=== PATIENT | male | born 1965 | race Caucasian/White ===

== ENCOUNTER → 2016-09-26 | Outpatient (CLI) | payer OTHER ==
[~2016-09-26] VITALS: Ht 175.3 cm; Wt 109.4 kg
[~2016-09-26] MED LIST: ACETAMINOPHEN-1 EAC1 PO; AMBIEN 10 MG TA10 MG PO; AMOXICILLIN875 MG PO; ASPIRIN EC81 M1 PO; EFFEXOR XR150 MG PO; EFFEXOR XR75 MG PO; FLEXERIL PO; HYDROCODONE-AC120 ML PO; HYDROXYZINE PAM50 MG PO; LIORESAL 10 MG10 MG PO; LISINOPRIL5 MG PO; LYRICA 50 MG50 MG PO; MELOXICAM15 MG PO; NEURONTIN 300300 M1 PO; NORCO 5-325 TA1 EACH PO; PHENTERMINE H37.5 M1 PO; PREDNISONE50 MG PO; PRINIVIL10 MG PO; PROAIR HFA8.5 GM IH; TOPAMAX 25 MG T25 M1 PO; TRAMADOL 50 MG50 MG PO; VENLAFAXIN37.5 MG/1 PO; VENLAFAXIN75 MG/1 T2 PO; VITAMIN B-12100 MCG PO; ZESTORETIC 20-1 EAC3 PO
--- NOTE | ~2016-09-26 | HPC ---
Formerly [facility] [place] [address] PAIN MANAGEMENT CONSULTATION Name: TERESITA CLEMONS Room #: REG [facility]#: [id number] Admission: 09/26/16 Attend Phys: Nan Gan MD Discharge: Date of : 65 Report #: [id number] THIS REPORT FOR: //name// CC: Nan Nolasco MD DATE OF SERVICE: 09/26/2016 CHIEF COMPLAINT: Pain in the back that has improved greater than 50%. FOLLOWUP HISTORY: The patient is a 51-year-old gentleman who has been seen in the pain clinic because of pain and discomfort with pain radiating down to his back on the right side. It causes some discomfort in his calf. He underwent an epidural steroid injection at the L5-S1 distribution at the last visit. He returns today indicating that his pain has improved. He is still having some aching pain in the buttocks and cramping and some weakness in the right calf. He describes it as 3/4 pain intensity. 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 This makes his pain somewhat more problematic. PHYSICAL EXAMINATION: Blood pressure 117/83, pulse 80, respiratory rate 16, room air saturation 97%. Height 5 feet 9 inches. Weight 109 kilograms. BMI is 35. The patient has pain and discomfort in the right low back area with radiation down into his buttocks and notes some discomfort and pressure sensation in his right calf. This has improved since the last injection. IMPRESSION: 1. Chronic low back pain with recurrence of lumbar radiculopathy, right lower extremity in the L5-S1 distribution. 2. Lumbar spondylosis. 3. History of depression. RECOMMENDATIONS: We discussed treatment options with the patient. Risks and benefits of an epidural steroid injection were again reviewed. Possible complications were expressed and answered. The patient elects to proceed. PROCEDURE NOTE: The patient was placed in the prone position. Fluoroscopy was used to identify the L5-S1 interspace. This area had been sterilely prepped with Betadine and infiltrated with 0.25% bupivacaine. Total of 80 mg Depo-Medrol, 40 mg triamcinolone and 2 mL of 0.25% bupivacaine was injected. The patient tolerated the procedure well. There were no complications. [address] [address] PAIN MANAGEMENT CONSULTATION Name: TERESITA CLEMONS ISRA [id number] Admission: 09/26/16 Attend Phys: Nan Gan MD Discharge: Date of : 65 Report #: [id number] We would like to thank you for letting us participate in his care. We hope he continues to improve. <ELECTRONICALLY SIGNED> By: Nan Gan MD 10/05/16 [id number] Nan Gan MD /nt
[2016-09-26 09:44] VITALS: BP 117/83
== END ==
LOC: PAIN 06:03
DX: M47.26 Other spondylosis with radiculopathy, lumbar region (principal); F32.9 Major depressive disorder, single episode, unspecified; I10 Essential (primary) hypertension

== ENCOUNTER → 2018-02-02 | Outpatient (CLI) | payer OTHER | LOC: CAT 10:15 | DX: R55 Syncope and collapse (principal); I25.10 Atherosclerotic heart disease of native coronary artery without angina pectoris; Z88.0 Allergy status to penicillin ==

== ENCOUNTER → 2018-10-19 | Outpatient (CLI) | payer OTHER | LOC: RAD 10:40 | DX: M51.37 Other intervertebral disc degeneration, lumbosacral region (principal); M48.07 Spinal stenosis, lumbosacral region; M12.88 Other specific arthropathies, not elsewhere classified, other specified site; Z90.49 Acquired absence of other specified parts of digestive tract ==

== ENCOUNTER → 2019-09-13 | Outpatient (CLI) | payer OTHER | LOC: NUC 09-09 14:25 | DX: K76.0 Fatty (change of) liver, not elsewhere classified (principal); R74.8 Abnormal levels of other serum enzymes ==

== ENCOUNTER → 2020-01-03 | Outpatient (CLI) | payer OTHER | LOC: MRI 12:26 | PROVIDERS: ATTEND Nurse Practitioner | DX: J34.1 Cyst and mucocele of nose and nasal sinus (principal); M62.81 Muscle weakness (generalized) ==

== ENCOUNTER 2020-09-09 17:07 | Emergency (ER) | payer OTHER ==
[~2020-09-09] VITALS: Ht 175.3 cm; Wt 113.4 kg
[2020-09-09] MEDS ORDERED: FELDENE20 MG PO (17:18)
[2020-09-09] MEDS ORDERED: LISINOPRIL10 MG PO (17:18)
[2020-09-09] MEDS ORDERED: NORVASC 2.5 MG2.5 M1 PO (17:19)
[2020-09-09] MEDS ORDERED: DULOXETINE HCL30 MG PO (17:19)
[2020-09-09] MEDS ORDERED: HYDROXYZINE HCL50 MG PO (17:19)
[2020-09-09] MEDS ORDERED: BUSPIRONE HCL10 MG PO (17:19)
[2020-09-09] MEDS ORDERED: SILDENAFIL20 MG PO (17:20)
[2020-09-09 18:42] VITALS: BP 136/73
== END 2020-09-09 19:06 | disposition home or self-care (01) ==
LOC: ER 17:07
DX: S61.012A Laceration without foreign body of left thumb without damage to nail, initial encounter (principal); I10 Essential (primary) hypertension; Z90.49 Acquired absence of other specified parts of digestive tract; Z79.82 Long term (current) use of aspirin; Z79.899 Other long term (current) drug therapy; Z88.1 Allergy status to other antibiotic agents; W26.8XXA Contact with other sharp object(s), not elsewhere classified, initial encounter; Y93.89 Activity, other specified; Y92.89 Other specified places as the place of occurrence of the external cause; Y99.8 Other external cause status